=== PATIENT | female | born 1985 | race Caucasian/White ===

== ENCOUNTER 2016-12-16 14:44 | Emergency (ER) | payer OTHER | END 2016-12-16 17:14 | disposition home or self-care (01) | LOC: ER1 14:44 | DX: S93.402A Sprain of unspecified ligament of left ankle, initial encounter (principal); J45.909 Unspecified asthma, uncomplicated; Z79.899 Other long term (current) drug therapy; V09.9XXA Pedestrian injured in unspecified transport accident, initial encounter; Y92.481 Parking lot as the place of occurrence of the external cause | CPT/HCPCS: 73564; 73610; 81001; 84703; 99283 ==